=== PATIENT | female | born 1955 | race Caucasian/White ===

== ENCOUNTER 2018-12-04 09:12 | Emergency (ER) | payer MEDICARE, BC ==
--- NOTE | 2018-12-04 09:16 | ER Report ---
History and Physical Time Seen By MD: 09:16 HPI/ROS CHIEF COMPLAINT: Lower extremity pain and swelling distal to the knee HISTORY OF PRESENT ILLNESS: Patient is a 63-year-old female here with acute on set of right lower extremity swelling distal to the knee. Patient was concerned that she might have a DVT prompting evaluation today. Patient denies fevers, chest pain, shortness breath, orthopnea. Patient is well-appearing at time of evaluation with clear swelling of the right lower extremity REVIEW OF SYSTEMS: Constitutional: No fever, no chills. Eyes: No discharge. ENT: No sore throat. Cardiovascular: No chest pain, no palpitations. Respiratory: No cough, no shortness of breath. Gastrointestinal: No abdominal pain, no vomiting. Genitourinary: No hematuria. Musculoskeletal: + Significant swelling distal to the knee with tenderness on palpation Skin: No rashes. Neurological: Neurovascular exam intact in distal extremity Allergies: Coded Allergies: No Known Drug Allergies (Unverified , 12/04/18) Home Meds Active Scripts Rivaroxaban 20 Mg (XARELTO 20 MG) 20 Mg Tablet, 20 MG PO QDAY for 30 Days, #30 TAB 3 Refills Prov:FRANK LOMAS DO 12/04/18 Rivaroxaban 15 Mg (XARELTO 15 MG) 15 Mg Tablet, 15 MG PO BID for 21 Days, #42 TAB Prov:FRANK LOMAS DO 12/04/18 Constitutional Physical Exam General Appearance: The patient is alert, has no immediate need for airway protection and no signs of toxicity. Uncomfortable appearing, nontoxic Eyes: Pupils equal and round no pallor or injection. ENT, Mouth: Mucous membranes are moist. Respiratory: There are no retractions, lungs are clear to auscultation. Cardiovascular: Regular rate and rhythm. [ ] Gastrointestinal: Abdomen is soft and non tender, no masses, bowel sounds norm al. Neurological: Neurovascular exam intact in distal right lower extremity Skin: Warm and dry, no rashes. Musculoskeletal: Significant edema distal to the knee with tenderness on palpation DIFFERENTIAL DIAGNOSIS: After history and physical exam differential diagnosis was considered for DVT, superficial thrombophlebitis, cellulitis, abscess, venous stasis Medical Decision Making EKG/Imaging Imaging see duplex imaging ED Course/Re-evaluation ED Course Patient is a 63-year-old female here with complaints of edema and tenderness distal to the right knee. And confirmed a significant DVT extending distally from the popliteal vein. Patient is neurovascularly intact distal to the DVT. Patient was started on Zaroxolyn toe. I recommend close PCP follow-up, patient was hemodynamically stable with no signs of shortness breath or chest pain. Patient was hemodynamically stable time of discharge. Decision to Disposition Date: Dec 04, 2018 Decision to Disposition Time: 11:22 Depart Departure Latest Vital Signs Impression: Primary Impression: DVT (deep venous thrombosis) Condition: Improved Disposition: HOME OR SELF-CARE New Scripts Rivaroxaban 20 Mg (XARELTO 20 MG) 20 Mg Tablet 20 MG PO QDAY for 30 Days, #30 TAB 3 Refills Prov: FRANK LOMAS DO 12/04/18 Rivaroxaban 15 Mg (XARELTO 15 MG) 15 Mg Tablet 15 MG PO BID for 21 Days, #42 TAB Prov: FRANK LOMAS DO 12/04/18 Patient Instructions: Deep Venous Thrombosis (DC) Additional Instructions: Please take 15 mg of Xarelto to go twice daily for 21 days, 20 mg daily after that time. Please follow-up with your family doctor in the next 24-48 hours. Please return promptly if you develop redness, increasing pain, fevers, chest pain, trouble breathing. FRANK LOMAS DO Dec 04, 2018 09:16
[2018-12-04] MEDS ORDERED: RIVAROXABAN 10 MG TAB PO ONE (11:10)
[2018-12-04] MEDS ORDERED: RIVA15TA PO (11:27)
[2018-12-04] MEDS ORDERED: RIVA20TA PO (11:27)
[2018-12-04 11:43] VITALS: BP 148/82
== END 2018-12-04 11:45 | disposition home or self-care (01) ==
LOC: ER 10:01
DX: I82.431 Acute embolism and thrombosis of right popliteal vein (principal)
CPT/HCPCS: 93971; 99284; A9270

== ENCOUNTER 2019-01-19 09:01 | Emergency (ER) | payer MEDICARE, BC ==
[~2019-01-19 09:01] MED LIST: RIVA15TA PO; RIVA20TA PO
--- NOTE | 2019-01-19 09:13 | ER Report ---
History and Physical Time Seen By MD: 09:12 HPI/ROS CHIEF COMPLAINT: Right leg pain and swelling HISTORY OF PRESENT ILLNESS: 63-year-old female sent here by primary care for evaluation of a right lower extremity swelling patient has a known history of a DVT diagnosed about 4-6 weeks ago extensive DVT to the right lower extremity she's had significant swelling and pain over the last for 5 days she says the pain is gotten worse than the swelling is been unchanged he's currently on several toe for her anticoagulation patient states that she has no chest pain or shortness of breath no additional complaints noted just increased worsening feels a pins and needles when she walks on her foot since her pain is about a 9 out of 10. REVIEW OF SYSTEMS: Respiratory: No cough, no dyspnea. Cardiovascular: No chest pain, no palpitations. Gastrointestinal: No vomiting, no abdominal pain. Musculoskeletal: Right leg pain and swelling Remainder of the 14 system rev: Yes Allergies: Coded Allergies: No Known Drug Allergies (Unverified , 01/19/19) Home Meds Active Scripts Rivaroxaban 20 Mg (XARELTO 20 MG) 20 Mg Tablet, 20 MG PO QDAY for 30 Days, #30 TAB 3 Refills Prov:FRANK LOMAS DO 12/04/18 Rivaroxaban 15 Mg (XARELTO 15 MG) 15 Mg Tablet, 15 MG PO BID for 21 Days, #42 TAB Prov:FRANK LOMAS DO 12/04/18 Reviewed Nurses Notes: Yes Old Medical Records Reviewed: Yes Constitutional Vital Sign - Last 24 Hours 01/19/19 09:08 Temp 97.9 Pulse 82 Resp 16 B/P (MAP) 142/82 Pulse Ox 94 O2 Delivery Room Air Physical Exam General appearance: Alert no distress. Respiratory: Chest is non tender, lungs are clear to auscultation. Cardiac: Regular rate and rhythm [ ] Right lower extremity patient has +2+ 3D Pitting edema throughout mostly lower extremity neurovascularly intact this disproportionate calf swelling approximately 2 cm in diameter patient has some tenderness to palpation of the calf itself otherwise unremarkable exam DIFFERENTIAL DIAGNOSIS: After history and physical exam differential diagnosis was considered for DVT worsening DVT or venous stasis Medical Decision Making Data Points Laboratory Hematology Test 01/19/19 09:27 Prothrombin Time 20.4 seconds (12.0-14.4) Prothromb Time International Ratio 1.72 Activated Partial Thromboplast Time 47 seconds (23-35) Acetaminophen Level < 10 ug/ml Chemistry Test 01/19/19 09:27 Prothrombin Time 20.4 seconds (12.0-14.4) Prothromb Time International Ratio 1.72 Activated Partial Thromboplast Time 47 seconds (23-35) Acetaminophen Level < 10 ug/ml Coagulation Test 01/19/19 09:27 Prothrombin Time 20.4 seconds Prothromb Time International Ratio 1.72 Activated Partial Thromboplast Time 47 seconds Toxicology Test 01/19/19 09:27 Acetaminophen Level < 10 ug/ml ED Course/Re-evaluation ED Course ED course medical decision making 63-year-old female came here for worsening pain of her right lower extremity has a known history of DVT repeat ultrasound shows a clearance of the DVT she is subtherapeutic on her INR however she is on therapeutic levels of her other anticoagulation. Patient will be discharged advised to continue medications as ordered primary care follow-up diagnosis leg swelling and edema Decision to Disposition Date: Jan 19, 2019 Decision to Disposition Time: 10:24 Depart Departure Latest Vital Signs Vital Signs Date Time Temp Pulse Resp B/P (MAP) Pulse Ox O2 Delivery O2 Flow Rate FiO2 01/19/19 09:08 97.9 82 16 142/82 94 Room Air Impression: Primary Impression: Edema Condition: Condition Unchanged Disposition: HOME OR SELF-CARE Referrals: JUSTINA STRATTON MD (PCP) YOEL REMY 5 Days Patient Instructions: Edema (DC) JOVI LOVE MD Jan 19, 2019 09:13
[2019-01-19 09:45] LABS: INR 1.72
--- NOTE | 2019-01-19 10:17 | RADIOLOGY IMAGING REPORT ---
FACILITY: [facility] PATIENT NAME: Jane Lee : 1955 MR: [id number] V: [id number] EXAM DATE: ORDERING PHYSICIAN: JOVI LOVE TECHNOLOGIST: [place] [facility] [place] Jane Lee : 1955 Visit/Account:[id number] Date of Sevice: 01/19/2019 Exam type: US VENOUS LOWER EXT RT History: DVT worse pain swelling Comparison: December 04, 2018. Findings: The right lower extremity veins are imaged including the right common femoral vein, superficial femor al vein, greater saphenous vein, popliteal vein, peroneal vein, posterior tibial vein and anterior ti bial vein revealing no evidence of intraluminal thrombi. The veins were compressible and demonstrate d augmentation.. Incidentally noted is a soft tissue swelling over the anterior aspect of the right beal. IMPRESSION: 1. No sonographic evidence DVT involving the right lower extremity veins Soft tissue swelling over the anterior aspect of the right beal Report Dictated By: Breanna Abraham MD at 01/19/2019 10:11 AM Report E-Signed By: Breanna Abraham MD at 01/19/2019 10:13 AM WSN:[id number]
[2019-01-19 10:30] VITALS: BP 125/85
== END 2019-01-19 10:34 | disposition home or self-care (01) ==
LOC: ER 09:05
DX: R60.0 Localized edema (principal); Z86.718 Personal history of other venous thrombosis and embolism
CPT/HCPCS: 85610; 85730; 93971; 99284; G0480; 80329

== ENCOUNTER → 2019-01-30 | Outpatient (CLI) | payer MEDICARE, BC ==
--- NOTE | 2019-01-30 17:46 | RADIOLOGY IMAGING REPORT ---
[facility] PATIENT NAME: Jane Lee : 1955 MR: [id number] V: [id number] EXAM DATE: ORDERING PHYSICIAN: DANIELLE TRONCOSO TECHNOLOGIST: Location: [facility] Patient: Jane Lee : 1955 Visit/Account:[id number] Date of Sevice: 01/30/2019 Clinical history: Screening, postmenopausal. Comparison: None. LUMBAR SPINE: The bone mineral density (BMD) measured from L1-L4 correlates with a Z-score of 2.8 and a T-score of 1.5 which is normal as defined by the World Health Organization. The corresponding risk of fracture in the lumbar spine is not increased compared with a young adult reference population. HIP: Bone mineral density (BMD) measured in the left total hip region correlates with a Z-score of -0.4 an d a T-score of -1.5 which is osteopenia as defined by the World Health Organization. The correspondi ng risk of fracture in the hip is increased 3 times compared with a young adult reference population. Bone mineral density (BMD) measured in the left femoral neck correlates with a Z-score of 0.4 and a T -score of -0.9 which is normal as defined by the World Health Organization. The corresponding risk o f fracture in the hip is increased 1-2 times compared with a young adult reference population. Bone mineral density (BMD) measured in the left Femoral Neck region measures 0.914 g/cm2. Impression: 1. Lumbar spine: Normal. 2. Left total hip: Osteopenia. 3. Left femoral neck: Normal 4. Left femoral neck Bone Mineral Density is 0.914 g/cm2 The next DEXA scan of this patient should include the following sites: Lumbar spine and left hip. FRAX? WHO Fracture Risk Assessment Tool link: http://www.shef.ac.uk/FRAX/tool.jsp?locationValue=9 PLEASE NOTE: 1) The World Health Organization defines low BMD as follows: T-score Normal > -1 Osteopenia < -1 and > -2.5 Osteoporosis < -2.5 without fractures Established osteoporosis < -2.5 with fractures 2) In general, you may wish to consider: Diagnosis Treatment Follow-up DEXA Normal BMD Prevention 2-3 years Osteopenia Prevention/therapy 1-2 years Osteoporosis Therapy Yearly 3) Fracture risk estimated from the T-score is more accurate for vertebral fractures (often spontane ous) than for hip fractures. Report Dictated By: Kelley Laura MD at 01/30/2019 5:38 PM Report E-Signed By: Kelley Laura MD at 01/30/2019 5:39 PM WSN:[id number]
--- NOTE | 2019-01-31 13:01 | RADIOLOGY IMAGING REPORT ---
FACILITY: [facility] - [place] PATIENT NAME: EVONNE COLE : [id number] MR: [id number] V: [id number] EXAM DATE: [id number] ORDERING PHYSICIAN: DANIELLE TRONCOSO TECHNOLOGIST: Risa Blake PROCEDURE: BILATERAL DIGITAL SCREENING MAMMOGRAM WITH CAD ASSISTED INTERPRETATION & 3D TOMOSYNTHESIS REASON FOR STUDY: Screening. COMPARISON: 12/29/2017, 02/03/2017. VIEWS OBTAINED: 2D & 3D full field CC & MLO. BREAST DENSITY: The breasts are fatty. MAMMOGRAM FINDINGS: In the Right breast 12 o'clock position 6cm from the nipple, there is an 8mm circumscribed mass with solid and fatty elements new from prior examination. Recommend further evaluation. No concerning microcalcifications on the Right. In the Left breast there are some new small axillary tail lymph nodes which also warrant additional evaluation. No concerning microcalcifications on the Left. IMPRESSION: BIRADS 0: Incomplete. DIAGNOSTIC CATEGORY 0--INCOMPLETE: NEED ADDITIONAL IMAGING EVALUATION. RECOMMENDATIONS: ADDITIONAL MAMMOGRAPHIC VIEWS REQUIRED: OF THE 8MM MASS IN THE RIGHT BREAST 12 O'CLCOK POSITION 6CM FROM THE NIPPLE. RECOMMEND SPOT COMPRESSION 3D VIEWS IN THE CC & MLO PROJECTIONS. RECOMMEND AN ULTRASOUND IF INDICATED BY ADDITIONAL VIEWS. ULTRASOUND OF LEFT AXILLA & AXILLARY TAIL TO EVALUATE THE LYMPH NODES IN THAT REGION. Dictated by: Ajay Glez M.D. on 01/31/2019 at 10:00 Transcribed by: VIVIAN on 01/31/2019 at 11:43 Approved by: Ajay Glez M.D. on 01/31/2019 at 12:59 [facility]
== END ==
LOC: MAMO 00:55
PROVIDERS: ATTEND Physician Assistant
DX: R92.2 Inconclusive mammogram (principal); M85.811 Other specified disorders of bone density and structure, right shoulder
CPT/HCPCS: 77063; 77067; 77080

== ENCOUNTER → 2019-02-21 | Outpatient (CLI) | payer MEDICARE, BC ==
--- NOTE | 2019-03-02 14:42 | RADIOLOGY IMAGING REPORT ---
[place] [facility] [place]IENT NAME: EVONNE COLE : [id number] MR: [id number] V: [id number] EXAM DATE: [id number] ORDERING PHYSICIAN: DANIELLE TRONCOSO TECHNOLOGIST: Tl Amaro RDMS, RDSYED PROCEDURE: US BREAST BILATERL LIMITED COMPARISON: Bilateral mammogram 01/30/19. INDICATIONS: Further evaluation. RIGHT BREAST ULTRASOUND AREA SCANNED: 10-2 o'clock position FINDINGS: In the 12 o'clock position of the Right breast 6cm from the nipple there is an ovoid circumscribed hypoechoic mass with an ovoid echogenic hilum. This mass measures 7.6 x 4.7 x 5.3mm. This likely accounts for the recent mammographic findings although of noted in the previous mammogram report Spot compression view of this area is recommended. LEFT BREAST ULTRASOUND AREA SCANNED: The Left Axilla. FINDINGS: In the Left axilla multiple fatty replaced lymph nodes are identified ranging in size up to 2.8cm. This likely account for the recent mammographic findings CONCLUSION: BIRADS 0: Incomplete A diagnostic Right mammogram recommended as described the recent Right mammogram report with special attention to the 12 o'clock position. Bilateral breast Ultrasound also recommended in 3 months to document stability of the above findings. Dictated by: Breanna Abraham M.D. on 02/21/2019 at 16:47 Transcribed by: VIVIAN on 02/22/2019 at 10:18 Approved by: Breanna Abraham M.D. on 02/22/2019 at 17:11 [facility]
== END ==
LOC: MAMO 02-09 00:51
PROVIDERS: ATTEND Physician Assistant
DX: R92.2 Inconclusive mammogram (principal)

== ENCOUNTER → 2019-03-14 | Outpatient (CLI) | payer MEDICARE, BC ==
--- NOTE | 2019-03-16 09:30 | RADIOLOGY IMAGING REPORT ---
[place] [facility] [place]IENT NAME: EVONNE COLE : [id number] MR: [id number] V: [id number] EXAM DATE: ORDERING PHYSICIAN: DANIELLE TRONCOSO TECHNOLOGIST: Risa Blake PROCEDURE:RIGHT DIGITAL MAMMOGRAM DIAGNOSTIC 2D & 3D Right breast tomosynthesis REASON FOR STUDY: Further evaluation FAMILY HISTORY OF BREAST CANCER: BREAST PROCEDURES/TREATMENTS: COMPARISON STUDIES: 01/30/19, 12/29/17, 02/22/17, 02/03/17 MAMMOGRAM VIEWS OBTAINED: 2D full field Right CC view & 3D spot compression view in the Right CC projection BREAST DENSITY: MAMMOGRAM FINDINGS: The previously noted 8mm circumscribed mass in the approximate 12 o'clock position of the Right breast is no longer seen. There is a tiny elliptical area of increased density seen just lateral to midline in the middle depth on the full field 2D Right CC view. This, however, is not confirmed on the spot compression view & may represent a collapsing cyst. DIAGNOSTIC CATEGORY 2--BENIGN FINDING. RECOMMENDATIONS: ROUTINE MAMMOGRAM AND CLINICAL EVALUATION. IMPRESSION: BIRADS 2: Benign finding. The 8mm circumscribed mass 12 o'clock position Right breast has been replaced by a very tiny ovoid area of increased density likely representing a collapsing cyst. Dictated by: Breanna Abraham M.D. on 03/14/2019 at 17:04 Transcribed by: DARIN on 03/16/2019 at 8:43 Approved by: Breanna Abraham M.D. on 03/16/2019 at 9:26 [facility]
== END ==
LOC: MAMO 01:23
PROVIDERS: ATTEND Physician Assistant
DX: R92.2 Inconclusive mammogram (principal)
CPT/HCPCS: 77061; 77065